=== PATIENT | female | born 1985 | race Caucasian/White ===

== ENCOUNTER 2017-01-08 21:24 | Emergency (ER) | payer OTHER ==
[2017-01-08 21:52] VITALS: BP 116/75; PULSE 81; TEMP 97.9; BMI 25.4
--- NOTE | 2017-01-08 23:15 | PDOC ---
History of Present Illness - General Chief Complaint: Pain Stated Complaint: INJURY Time Seen by Provider: 01/08/17 23:13 History Source: Patient Exam Limitations: No Limitations - History of Present Illness Initial Comments: CHIEF COMPLAINT: 31 y/o afebrile female with no significant PMH here for head trauma. HISTORY OF PRESENT ILLNESS: The patient states she bent down to get something off the floor and hit her forehead into the edge of a piece of furniture. She sustained a cut to her forehead and is here to make sure she doesn't need stitches. She denies LOC, changes in vision/hearing, neck pain, bleeding from ears, nose, n/v/d and all other symptoms. She states she is UTD on tetanus. Vital signs on arrival are within normal limits. REVIEW OF SYSTEMS: GENERAL/CONSTITUTIONAL: No fever/chills. No weakness. No weight change. HEAD, EYES, EARS, NOSE AND THROAT: No change in vision. No ear pain or discharge. No sore throat. CARDIOVASCULAR: No chest pain or shortness of breath. RESPIRATORY: No cough, wheezing, or hemoptysis. GASTROINTESTINAL: No abd pain, nausea, vomiting, diarrhea. GENITOURINARY: No dysuria, frequency, or change in urination. MUSCULOSKELETAL: No joint or muscle swelling or pain. No neck or back pain. SKIN: +swelling and cut to forehead NEUROLOGIC: No headache, vertigo, loss of consciousness, or loss of sensation. PHYSICAL EXAM: GENERAL: The patient is awake, alert, and fully oriented, in no acute distress. She is very well appearing, ambulatory, in NAD or obvious discomfort. HEAD: 2cm in diameter hematoma of right forehead with central abrasion that is approximately 1cm in vertical length. The abrasion is so superficial the margins to not come together with tension. No gaping to the abrasion. No active bleeding NECK: No midline cervical spine TTP, step offs or crepitus. ENT: Pupils equal, round and reactive to light, extraocular movements intact, sclera anicteric, conjunctiva clear. No raccoon eyes. No hemotympanum b/l. EXTREMITIES: Normal range of motion, no edema. NEUROLOGICAL: Normal speech, normal gait. PSYCH: Normal mood, normal affect. SKIN: Abrasion to forehead (see HEAD) Past History - Past Medical History Allergies/Adverse Reactions: Allergies Allergy/AdvReac Type Severity Reaction Status Date / Time shellfish derived Allergy Verified 01/08/17 21:48 Home Medications: Ambulatory Orders Norethindrone-E.estradiol-Iron [Minastrin 24 Fe Chewable Tab] 1 each PO DAILY Asthma: Yes Other medical history: Chronic idiopathic urticaria - Immunization History Immunization Up to Date: Yes - Psycho/Social/Smoking Cessation Hx Anxiety: No Suicidal Ideation: No Smoking History: Never smoked Have you smoked in the past 12 months: No Information on smoking cessation initiated: No Hx Alcohol Use: No Drug/Substance Use Hx: No Substance Use Type: None *Physical Exam - Vital Signs Last Vital Signs Temp Pulse Resp BP Pulse Ox 97.9 F 81 18 116/75 100 01/08/17 21:48 01/08/17 21:48 01/08/17 21:48 01/08/17 21:48 01/08/17 21:48 Medical Decision Making - Medical Decision Making A/P: 31 y/o afebrile female with head trauma this evening with hematoma and abrasion to right forehead. The abrasion is not deep enough to be sutured. There is no need for imaging at this time. Cleaned wound with hydrogen peroxide , applied bacitracin and covered with bandaid. Will discharge to home with instructions to apply ice to the area, and keep wound clean and dry. Suggested she return to the ER with any worsening or concerning symptoms. The patient verbalizes understanding of all instructions, has no further questions and is awaiting discharge. *DC/Admit/Observation/Transfer Diagnosis at time of Disposition: Hematoma Abrasion of forehead Qualifiers: Encounter type: initial encounter Qualified Code(s): S00.81XA - Abrasion of other part of head, initial encounter Head trauma Qualifiers: Encounter type: initial encounter Qualified Code(s): S09.90XA - Unspecified injury of head, initial encounter - Discharge Dispostion Disposition: HOME Condition at time of disposition: Good - Referrals Referrals: Venus Montenegro [Primary Care Provider] - - Patient Instructions Printed Discharge Instructions: DI for Closed Head Injury, DI for Abrasion Additional Instructions: Discharge Instructions: -Keep wound clean and dry -Apply ice to your forehead to help with swelling -Return to the ER with any worsening or concerning symptoms
--- NOTE | 2017-01-08 23:40 | PDOC ---
*Physical Exam - Vital Signs Last Vital Signs Temp Pulse Resp BP Pulse Ox 97.9 F 81 18 116/75 100 01/08/17 21:48 01/08/17 21:48 01/08/17 21:48 01/08/17 21:48 01/08/17 21:48 Medical Decision Making - Medical Decision Making 01/08/17 23:40 agree with care from ROWAN Brock
== END 2017-01-09 00:06 | disposition home or self-care (01) ==
LOC: JER 21:24 → JERFT 21:24 → JER 01-09 00:06
DX: S00.81XA Abrasion of other part of head, initial encounter (principal); S09.90XA Unspecified injury of head, initial encounter; J45.909 Unspecified asthma, uncomplicated; W22.03XA Walked into furniture, initial encounter; Y93.89 Activity, other specified; Y92.9 Unspecified place or not applicable
CPT/HCPCS: 99281-25

== ENCOUNTER 2019-01-10 03:26 | Emergency (ER) | payer OTHER ==
[2019-01-10 03:33] VITALS: BP 119/80; PULSE 71; TEMP 97.7; BMI 25.8
[2019-01-10] MEDS ORDERED: OXYMETAZOLINE 0.05% NASAL SOLUTION 15 ML BOTTLE NS ONE ×2 (03:44→03:50)
[2019-01-10] MEDS ORDERED: SODIUM CHLORIDE NASAL SPRAY 44 ML BOTTLE NS ONE (03:44)
--- NOTE | 2019-01-10 04:00 | PDOC ---
History of Present Illness - General Chief Complaint: Ear Problem Stated Complaint: R JAW/EAR PAIN Time Seen by Provider: 01/10/19 03:28 - History of Present Illness Initial Comments: 01/10/19 03:56 Chief complaint right ear jaw sinus pain History of present illness: 33 years old past medical history significant for urticaria and chronic sinus infections presents to the ED with one-day history of sinus infection causing her right ear right-sided sinus right jaw pain. Patient has had similar symptoms in the past normally they responded to Tylenol and Aleve she has had antibiotic treatments for these in the past tried Aleve at home with no resolution of symptoms. Pain is moderate to severe persistent constant no exacerbating or alleviating factors no fever no nasal discharge no alleviating factors worse when tilting head forward. Past History - Past Medical History Allergies/Adverse Reactions: Allergies Allergy/AdvReac Type Severity Reaction Status Date / Time shellfish derived Allergy Verified 01/08/17 21:48 Home Medications: Ambulatory Orders NK [No Known Home Medication] 01/10/19 Asthma: Yes COPD: No - Immunization History Immunization Up to Date: Yes - Suicide/Smoking/Psychosocial Hx Smoking History: Unknown if ever smoked Have you smoked in the past 12 months: No Number of Cigarettes Smoked Daily: 0 Information on smoking cessation initiated: No Hx Alcohol Use: No Drug/Substance Use Hx: No Substance Use Type: None Review of Systems - Review of Systems Comments:: 01/10/19 03:59 ROS: A complete review of 10 out of 10 review of systems is taken and is negative apart from what is previously mentioned below and in the HPI. *Physical Exam - Vital Signs Last Vital Signs Temp Pulse Resp BP Pulse Ox 97.7 F 71 14 119/80 100 01/10/19 03:29 01/10/19 03:29 01/10/19 03:29 01/10/19 03:29 01/10/19 03:29 - Physical Exam Comments: 01/10/19 03:59 Vitals: Triage Vital signs reviewed General Appearance: no acute distress, well nourished well developed, Head: Atraumatic, positive right sided sinus tenderness to palpation. Eyes: Pupils equal reactive round, extraocular movement intact Ears: TM's normal bilaterally; Nose: Nares patent bilaterally;no nasal congestion Throat: Posterior oropharynx without erythema, mucous membranes moist, no dental abscesses no dental pain Neck: Supple;No Nucal rigidity Chest Wall: Nontender Cardiac: Regular rate and rhythym, no murmurs, no rubs, no gallops, Lungs: Clear to auscultation bilateral, good air movement bilaterally, Psych: normal mood, normal affect ED Treatment Course - Medications Given in the ED: ED Medications Discontinued Medications Generic Name Dose Route Start Last Admin Trade Name Rohan PRN Reason Stop Dose Admin Oxymetazoline HCl 1 spray 01/10/19 03:44 01/10/19 03:51 Afrin - NS 01/10/19 03:45 1 spray ONCE ONE Administration Medical Decision Making - Medical Decision Making 01/10/19 04:01 Well-appearing but in mild distress History examination consistent with right-sided sinus infection one-day history no fever no discharge no indication for antibiotics at this time we'll recommend Afrin nasal spray and saline rinses Findings, the need for follow-up and strict return instructions discussed with patient. *DC/Admit/Observation/Transfer Diagnosis at time of Disposition: Acute maxillary sinusitis Qualifiers: Recurrence: recurrent Qualified Code(s): J01.01 - Acute recurrent maxillary sinusitis - Discharge Dispostion Disposition: HOME Condition at time of disposition: Good Decision to Admit order: No - Referrals Referrals: Zack Lott MD [Staff Physician] - - Patient Instructions Printed Discharge Instructions: Sinusitis Additional Instructions: Afrin nasal spray twice a day. Flonase once a day. Continue Tylenol Motrin as needed for pain. Use Jamee pot 4-5 times per day follow instructions on package. If no improvement in 1-2 days follow-up with ENT. Return to ED for any fever severe headache severe worsening symptoms or for any concerns. - Post Discharge Activity Forms/Work/School Notes: Back to Work
== END 2019-01-10 04:09 | disposition home or self-care (01) ==
LOC: FER 03:26
DX: J01.01 Acute recurrent maxillary sinusitis (principal); J45.909 Unspecified asthma, uncomplicated
CPT/HCPCS: 99282-25

== ENCOUNTER 2019-01-14 22:27 | Emergency (ER) | payer OTHER ==
[2019-01-14 22:35] VITALS: BP 129/80; PULSE 86; TEMP 98.3; BMI 25.8
--- NOTE | 2019-01-14 22:49 | PDOC ---
History of Present Illness - General Chief Complaint: Ear Problem Stated Complaint: EAR PAIN Time Seen by Provider: 01/14/19 22:31 - History of Present Illness Initial Comments: 0 This 33-year-old woman with a history of recurrent sinusitis/asthma/migraine headaches presents with approximately 6 day history of right sided headache and facial tenderness. She had been seen here in the ER on 01/10; she was diagnosed as having acute sinusitis with supportive care given and follow-up with PMD scheduled on 01/12. When she was seen by her PMD, symptoms were persistent and she was started on Augmentin and Medrol Dosepak. Patient states she felt better the following day but today, severe pain and sense of fullness recurred, especially around her right ear. She states that she had taken her Augmentin as prescribed and using Tylenol/Aleve as needed for pain without relief. Pain is steady but intermittently is pulsatile. Patient describes her previous episodes of migraine as being around her right eye and in the mid forehead area. Her migraine headaches respond to "Excedrin migraine" medication. She has never seen a neurologist nor needed medications specifically targeted for migraine headache She denies fever, rash or stiff neck Past History - Past Medical History Allergies/Adverse Reactions: Allergies Allergy/AdvReac Type Severity Reaction Status Date / Time shellfish derived Allergy Verified 01/08/17 21:48 Home Medications: Ambulatory Orders Augmentin 500-125 Tablet 01/14/19 Methylprednisolone 01/14/19 Acetaminophen/Caffeine/Butalb [Fioricet -] 1 tab PO Q6H PRN #12 tablet MDD 4 Asthma: Yes COPD: No - Immunization History Immunization Up to Date: Yes - Suicide/Smoking/Psychosocial Hx Smoking History: Never smoked Have you smoked in the past 12 months: No Number of Cigarettes Smoked Daily: 0 Hx Alcohol Use: No Drug/Substance Use Hx: No Substance Use Type: None Review of Systems - Review of Systems Able to Perform ROS?: Yes Comments:: 12 point review of systems is negative except for what is noted in the history of present illness *Physical Exam - Vital Signs Last Vital Signs Temp Pulse Resp BP Pulse Ox 98.3 F 86 16 129/80 100 01/14/19 22:30 01/14/19 22:30 01/14/19 22:30 01/14/19 22:30 01/14/19 22:30 - Physical Exam Comments: 01/15/19 04:17 GENERAL: Adult female, alert and oriented 3, in mild distress secondary to right-sided head pain HEAD: Normal with no signs of trauma. EYES: PERRLA, EOMI, sclera anicteric, conjunctiva clear. ENT: Ears normal including canals and tympanic membranes bilaterally, nares patent, oropharynx clear without exudates. Dry mucous membranes. Right frontal/maxillary areas of face is tender on palpation NECK: Normal range of motion, supple without lymphadenopathy, JVD, or masses. LUNGS: Breath sounds equal, clear without wheezing EXTREMITIES: Normal range of motion, no edema. No clubbing or cyanosis. No erythema, or tenderness. NEUROLOGICAL: Cranial nerves II through XII grossly intact. Normal speech and gait. No motor/sensory deficits MUSCULOSKELETAL: Back non-tender to palpation, no CVA tenderness SKIN: Warm, Dry, normal turgor, no rashes or lesions noted. Medical Decision Making - Medical Decision Making Patient given Toradol 60 mg IM with mild relief of pain but majority of discomfort still present. Since patient had never had CT imaging and this particular episode of pain ( sinus headache with possible migraine) extraordinarily severe, noncontrast head CT was performed (after POC urine negative) Noncontrast head CT interpreted by Imaging application architect manager: No evidence of acute intracranial pathology or skull fracture With acute bleed/mass ruled out, clinical presentation consistent with ongoing sinusitis with sinus versus migraine headache. Patient feels well enough to go home, stating that her headache pain has improved. She will continue the Augmentin for full course. She asked specifically for "headache medicine". Since the diagnosis of migraine has never been formally made, will defer on triptan prescription and issue a small (#12) prescription for Fioricet to be taken one tablet every 6 hours as needed for headache. She should follow-up with neurologist for further evaluation of her headaches. referral information provided for her. She should return to ER if she has persistent, severe pain/Vomiting/high fever *DC/Admit/Observation/Transfer Diagnosis at time of Disposition: Acute sinusitis Qualifiers: Sinusitis location: unspecified location Recurrence: non-recurrent Qualified Code(s): J01.90 - Acute sinusitis, unspecified Headache Qualifiers: Headache type: unspecified Headache chronicity pattern: episodic headache Intractability: not intractable Qualified Code(s): R51 - Headache - Discharge Dispostion Disposition: HOME Condition at time of disposition: Stable - Prescriptions Prescriptions: Acetaminophen/Caffeine/Butalb [Fioricet -] 1 tab PO Q6H PRN #12 tablet MDD 4 PRN Reason: Headache - Referrals Referrals: Venus Montenegro [Primary Care Provider] - Vlaentin Pozo MD [Staff Physician] - - Patient Instructions Printed Discharge Instructions: DI for Sinus Headache Additional Instructions: continue augmentin as prescribed; take with a meal continue drinking plenty of water Tylenol/Motrin as needed for mild headache Fioricet 1 tablet every 6 hours as needed for more severe headache followup with your general medical doctor within 3-4 days if headache is persistent, followup with neurologist( Dr Pozo) return to ER if you have persistent severe headache or high fever - Post Discharge Activity
[2019-01-14] MEDS ORDERED: KETOROLAC TROMETHAMINE 60 MG/2 ML VIAL IM ONE (23:35)
[2019-01-14] MEDS ORDERED: KETOROLAC TROMETHAMINE 60 MG/2 ML VIAL ONE (23:36)
== END 2019-01-15 01:55 | disposition home or self-care (01) ==
LOC: FER 22:27
PROC: 3E0233Z Introduction of Anti-inflammatory into Muscle, Percutaneous Approach (ICD-10-PCS; principal; 2019-01-14)
DX: J01.90 Acute sinusitis, unspecified (principal); R51 Headache; Z91.013 Allergy to seafood
CPT/HCPCS: 70450-TC; 81025; 99281-25